=== PATIENT | female | born 1980 | race Hispanic/Latino ===

== ENCOUNTER 2020-08-24 13:09 | Inpatient (IN) | payer OTHER, SELFPAY ==
[2020-08-24 13:45] LABS: #Basophils 0.1 thou/uL (0.0-0.2); #Eosinphils 0.2 thou/uL (0.0-0.7); #Lymphocytes 3.5 thou/uL (1.20-3.40); #Monocytes 0.9 thou/uL (0.11-0.59); #Neutrophils 8.8 thou/uL (1.40-6.50); %Basophils 1.1 % (0.0-1.0); %Eosinophils 1.8 % (0.0-10.0); %Lymphocytes 25.7 % (21.0-51.0); %Monocytes 6.9 % (0.0-10.0); %Neutrophils 64.5 % (42.0-75.0); Hemoglobin 17.3 g/dL (12.0-16.0); Mean Corpuscular HGB CONC 32.7 g/dL (32.0-36.0); Mean Corpuscular Volume 97.8 fL (78.0-98.0); Mean Platelet Volume 9.3 fL (7.4-10.4); Platelet Count 387 thou/uL (130-400); RBC Distribution Width 11.3 % (11.5-14.5); Red Blood Cell (RBC) Count 5.41 mill/uL (4.20-5.40); White Blood Cell (WBC) Count 13.6 thou/uL (4.8-10.8)
[2020-08-24 14:05] LABS: ALT (SGPT) 45 U/L (8-55); AST (SGOT) 26 U/L (5-34); Albumin 4.7 g/dL (3.5-5.0); Alkaline Phosphatase 125 U/L (40-110); Anion Gap 19 mmol/L (10-20); BUN (Urea Nitrogen) 7 mg/dL (7.0-18.7); Bilirubin, Total 0.3 mg/dL (0.2-1.2); Calc. Creatinine Clearance 0 mL/min (70-130); Calcium 9.7 mg/dL (7.8-10.44); Carbon Dioxide 19 mmol/L (22-29); Chloride 101 mmol/L (98-107); Globulin 3.5 g/dL (2.4-3.5); Glucose 418 mg/dL (70-105); Potassium 4.2 mmol/L (3.5-5.1); Protein, Total 8.2 g/dL (6.0-8.3); Sodium 135 mmol/L (136-145)
[2020-08-24] MEDS ORDERED: HYDROcodone/Acetaminophen 5/325 mg Tablet ONE (14:30)
[2020-08-24] MEDS ORDERED: Cefepime 2 GM VIAL ONE (14:42)
[2020-08-24] MEDS ORDERED: Vancomycin 1 GM/200 ML BAG ONE (14:42)
[2020-08-24 16:31] LABS: Bacteria/HPF None Seen HPF (None Seen); Bilirubin Negative (Negative); Blood, Urine Trace (Negative); Clarity Clear (Clear); Glucose, Urine (Dipstick) Greater than 1000 mg/dL (Negative); Ketone, Urine Negative (Negative); Leukocyte Negative Leu/uL (Negative); Nitrite Negative (Negative); Protein, Urine (Dipstick) Negative (Neg-Trace); RBC/HPF 0-3 HPF (0-3); Specific Gravity, Urine 1.035 (1.002-1.036); Urobilinogen Normal mg/dL (Less than 2); WBC/HPF 0-3 HPF (0-3); pH, Urine 5.5 (5.0-9.0)
[2020-08-24 16:48] LABS: Lactic Acid 2.1 mmol/L (0.5-2.2)
[2020-08-24] MEDS ORDERED: Dextrose 5% in Water 1,000 ML IV PRN (17:00)
[2020-08-24] MEDS ORDERED: Dextrose 50% Abboject 50 ML SYRINGE SLOW IVP PRN (17:00)
[2020-08-24] MEDS ORDERED: Acetaminophen 325 MG TAB PO PRN (17:02)
[2020-08-24] MEDS ORDERED: Senokot S 8.6-50 MG TAB PO PRN (17:02)
[2020-08-24] MEDS ORDERED: Bisacodyl 5 MG TAB PO PRN (17:02)
[2020-08-24] MEDS ORDERED: Enoxaparin Sodium 40 MG/0.4 ML SYRINGE SC SCH (17:15)
[2020-08-24 18:06] LABS: Hemoglobin A1c 11.2 % (4.0-6.0)
[2020-08-24 18:11] LABS: Lactic Acid 2.3 mmol/L (0.5-2.2)
[2020-08-24 20:30] VITALS: BMI 34.3
[2020-08-24] MEDS: Famotidine 20 MG TAB PO SCH (21:14)
[2020-08-24] MEDS: HYDROcodone/Acetaminophen 10/325 mg Tablet PO PRN (21:15)
[2020-08-24] MEDS: HumaLOG 300 UNITS/3 ML VIAL SC PRN (21:16)
[2020-08-24] MEDS: Clotrimazole 1 % Cream 30 GM TUBE TOP SCH (21:17)
[2020-08-24] MEDS: Lantus 1000 UNITS/10 ML VIAL SC SCH (21:17)
[2020-08-24] MEDS: Sodium Chloride 0.9% 1,000 ML IV SCH (21:18)
[2020-08-24] MEDS ORDERED: Vancomycin 1 GM in Premix Bag 1 BAG IVPB SCH (21:30)
[2020-08-24] MEDS: Lorazepam 0.5 MG TAB PO PRN (23:50)
[2020-08-25] MEDS: HumaLOG 300 UNITS/3 ML VIAL SC PRN ×4 (04:16→21:22)
[2020-08-25] MEDS: HYDROcodone/Acetaminophen 10/325 mg Tablet PO PRN ×5 (04:16→23:59)
[2020-08-25] MEDS: Sodium Chloride 0.9% 1,000 ML IV SCH ×4 (04:20→21:03)
[2020-08-25] MEDS: Clotrimazole 1 % Cream 30 GM TUBE TOP SCH ×2 (08:11→21:02)
[2020-08-25] MEDS: Famotidine 20 MG TAB PO SCH ×2 (08:11→21:02)
[2020-08-25 08:21] LABS: #Basophils 0.1 thou/uL (0.0-0.2); #Eosinphils 0.4 thou/uL (0.0-0.7); #Lymphocytes 3.4 thou/uL (1.20-3.40); #Monocytes 0.9 thou/uL (0.11-0.59); #Neutrophils 5.6 thou/uL (1.40-6.50); %Basophils 0.9 % (0.0-1.0); %Eosinophils 3.6 % (0.0-10.0); %Monocytes 9.1 % (0.0-10.0); %Neutrophils 53.5 % (42.0-75.0); Hemoglobin 14.7 g/dL (12.0-16.0); Mean Corpuscular HGB CONC 33.5 g/dL (32.0-36.0); Mean Corpuscular Hemoglobin 33.6 pg (27.0-31.0); Mean Platelet Volume 8.8 fL (7.4-10.4); Platelet Count 318 thou/uL (130-400); RBC Distribution Width 11.3 % (11.5-14.5); Red Blood Cell (RBC) Count 4.38 mill/uL (4.20-5.40); White Blood Cell (WBC) Count 10.4 thou/uL (4.8-10.8)
[2020-08-25 08:32] LABS: Anion Gap 13 mmol/L (10-20); BUN (Urea Nitrogen) 5 mg/dL (7.0-18.7); Calc. Creatinine Clearance 159 mL/min (70-130); Carbon Dioxide 19 mmol/L (22-29); Chloride 108 mmol/L (98-107); Glucose 134 mg/dL (70-105); Potassium 4.1 mmol/L (3.5-5.1); Sodium 136 mmol/L (136-145)
[2020-08-25] MEDS: Vancomycin HCl 1.25 GM in Sodium Chloride 0.9% 250 ML 250 ML IVPB SCH ×2 (09:35→21:53)
[2020-08-25] MEDS: Lorazepam 0.5 MG TAB PO PRN ×2 (09:41→21:02)
[2020-08-25] MEDS ORDERED: Lantus 1000 UNITS/10 ML VIAL SC SCH (12:15)
[2020-08-25 12:52] LABS: SARS-CoV-2 PCR by NAA Not Detected (NotDetected)
[2020-08-25] MEDS: Cefepime 2 GM in Sodium Chloride 0.9% 100 ML IVPB SCH (14:44)
[2020-08-25] MEDS: Enoxaparin Sodium 40 MG/0.4 ML SYRINGE SC SCH (21:02)
[2020-08-25] MEDS: Lantus 1000 UNITS/10 ML VIAL SC SCH (21:04)
[2020-08-26] MEDS: Ondansetron ODT 4 MG TAB PO PRN ×2 (01:25→18:18)
[2020-08-26] MEDS: HYDROcodone/Acetaminophen 5/325 mg Tablet PO PRN ×2 (05:54→22:10)
[2020-08-26] MEDS: HumaLOG 300 UNITS/3 ML VIAL SC PRN ×4 (05:56→21:10)
[2020-08-26 08:37] LABS: Vancomycin, Trough 7.5 ug/mL
[2020-08-26] MEDS: Famotidine 20 MG TAB PO SCH ×2 (08:45→21:09)
[2020-08-26] MEDS: Lorazepam 0.5 MG TAB PO PRN ×2 (08:49→22:11)
[2020-08-26] MEDS: Sodium Chloride 0.9% 1,000 ML IV SCH ×3 (08:49→22:13)
[2020-08-26] MEDS: Clotrimazole 1 % Cream 30 GM TUBE TOP SCH ×2 (08:50→22:10)
[2020-08-26 08:51] LABS: #Basophils 0.1 thou/uL (0.0-0.2); #Eosinphils 0.4 thou/uL (0.0-0.7); #Lymphocytes 2.7 thou/uL (1.20-3.40); #Monocytes 0.9 thou/uL (0.11-0.59); #Neutrophils 5.4 thou/uL (1.40-6.50); %Basophils 0.7 % (0.0-1.0); %Eosinophils 3.9 % (0.0-10.0); %Lymphocytes 28.9 % (21.0-51.0); %Monocytes 9.5 % (0.0-10.0); %Neutrophils 57.1 % (42.0-75.0); Mean Corpuscular HGB CONC 34.5 g/dL (32.0-36.0); Mean Corpuscular Hemoglobin 34.3 pg (27.0-31.0); Mean Corpuscular Volume 99.6 fL (78.0-98.0); Mean Platelet Volume 8.8 fL (7.4-10.4); Platelet Count 305 thou/uL (130-400); RBC Distribution Width 11.2 % (11.5-14.5); Red Blood Cell (RBC) Count 4.09 mill/uL (4.20-5.40); White Blood Cell (WBC) Count 9.5 thou/uL (4.8-10.8)
[2020-08-26 09:09] LABS: Anion Gap 12 mmol/L (10-20); BUN (Urea Nitrogen) 4 mg/dL (7.0-18.7); Calc. Creatinine Clearance 142 mL/min (70-130); Calcium 8.4 mg/dL (7.8-10.44); Carbon Dioxide 22 mmol/L (22-29); Chloride 105 mmol/L (98-107); Glucose 217 mg/dL (70-105); Potassium 3.8 mmol/L (3.5-5.1); Sodium 135 mmol/L (136-145)
[2020-08-26] MEDS: Vancomycin HCl 1.25 GM in Sodium Chloride 0.9% 250 ML 250 ML IVPB SCH ×3 (10:07→18:13)
[2020-08-26] MEDS: HYDROcodone/Acetaminophen 10/325 mg Tablet PO PRN ×2 (10:08→16:21)
[2020-08-26] MEDS: Cefepime 2 GM in Sodium Chloride 0.9% 100 ML IVPB SCH (16:21)
[2020-08-26] MEDS ORDERED: Lantus 1000 UNITS/10 ML VIAL SC SCH ×2 (21:00)
[2020-08-26] MEDS: Enoxaparin Sodium 40 MG/0.4 ML SYRINGE SC SCH (21:09)
[2020-08-27] MEDS: Vancomycin HCl 1.25 GM in Sodium Chloride 0.9% 250 ML 250 ML IVPB SCH (02:37)
[2020-08-27 06:27] LABS: Anion Gap 13 mmol/L (10-20); BUN (Urea Nitrogen) 6 mg/dL (7.0-18.7); Calc. Creatinine Clearance 146 mL/min (70-130); Calcium 8.5 mg/dL (7.8-10.44); Carbon Dioxide 20 mmol/L (22-29); Chloride 107 mmol/L (98-107); Glucose 216 mg/dL (70-105); Potassium 3.9 mmol/L (3.5-5.1); Sodium 136 mmol/L (136-145)
[2020-08-27] MEDS: HumaLOG 300 UNITS/3 ML VIAL SC PRN (06:33)
[2020-08-27 06:41] LABS: #Basophils 0.1 thou/uL (0.0-0.2); #Eosinphils 0.4 thou/uL (0.0-0.7); #Lymphocytes 2.7 thou/uL (1.20-3.40); #Monocytes 0.8 thou/uL (0.11-0.59); #Neutrophils 4.4 thou/uL (1.40-6.50); %Basophils 0.7 % (0.0-1.0); %Eosinophils 4.8 % (0.0-10.0); %Monocytes 9.8 % (0.0-10.0); %Neutrophils 52.7 % (42.0-75.0); Hemoglobin 14.7 g/dL (12.0-16.0); Mean Corpuscular HGB CONC 33.7 g/dL (32.0-36.0); Mean Corpuscular Hemoglobin 33.6 pg (27.0-31.0); Mean Corpuscular Volume 99.8 fL (78.0-98.0); Mean Platelet Volume 10.1 fL (7.4-10.4); Platelet Count 256 thou/uL (130-400); RBC Distribution Width 11.2 % (11.5-14.5); Red Blood Cell (RBC) Count 4.39 mill/uL (4.20-5.40); White Blood Cell (WBC) Count 8.4 thou/uL (4.8-10.8)
[2020-08-27] MEDS: Famotidine 20 MG TAB PO SCH (08:52)
[2020-08-27] MEDS: Clotrimazole 1 % Cream 30 GM TUBE TOP SCH (08:52)
[2020-08-27] MEDS: HYDROcodone/Acetaminophen 10/325 mg Tablet PO PRN (08:55)
[2020-08-27] MEDS: Ondansetron ODT 4 MG TAB PO PRN (08:59)
[2020-08-27 10:40] LABS: Vancomycin, Trough 14.8 ug/mL
[2020-08-27 12:45] VITALS: BP 138/92; TEMP 98.7
== END 2020-08-27 13:45 | disposition home or self-care (01) | DRG 872 ==
LOC: SUATTDRO 13:09 → ERS 13:09 → T4-A 17:02
PROVIDERS: ADMIT Family Medicine; ATTEND Internal Medicine
DX: A41.9 Sepsis, unspecified organism (principal); E87.1 Hypo-osmolality and hyponatremia; Z20.822 Contact with and (suspected) exposure to COVID-19; L03.115 Cellulitis of right lower limb; D75.1 Secondary polycythemia; F41.9 Anxiety disorder, unspecified; B35.3 Tinea pedis; F17.210 Nicotine dependence, cigarettes, uncomplicated; R65.20 Severe sepsis without septic shock; E11.9 Type 2 diabetes mellitus without complications; Z71.6 Tobacco abuse counseling; Z88.5 Allergy status to narcotic agent; Z98.51 Tubal ligation status; Z90.49 Acquired absence of other specified parts of digestive tract; Z83.3 Family history of diabetes mellitus
CPT/HCPCS: 36415; 36416; 80048; 80053; 80202; 81003; 81015; 83036; 83605; 85025; 87040; 87086; 93005; 96365; J0692; J1650; J1815; J3370; J3490; J7050; Q0162; U0003; U0005

== ENCOUNTER 2020-12-28 14:38 | Emergency (ER) | payer OTHER ==
[~2020-12-28 14:38] MED LIST: Iopamidol-370 76% 500 ML 1 ML ONE
[2020-12-28 15:52] LABS: #Basophils 0.1 thou/uL (0.0-0.2); #Eosinphils 0.2 thou/uL (0.0-0.7); #Lymphocytes 2.7 thou/uL (1.20-3.40); #Monocytes 1.2 thou/uL (0.11-0.59); #Neutrophils 6.2 thou/uL (1.40-6.50); %Basophils 0.5 % (0.0-1.0); %Eosinophils 2.4 % (0.0-10.0); %Lymphocytes 25.6 % (21.0-51.0); %Monocytes 11.2 % (0.0-10.0); %Neutrophils 60.2 % (42.0-75.0); Hemoglobin 15.3 g/dL (12.0-16.0); Mean Corpuscular HGB CONC 33.4 g/dL (32.0-36.0); Mean Corpuscular Hemoglobin 32.2 pg (27.0-31.0); Mean Corpuscular Volume 96.5 fL (78.0-98.0); Platelet Count 434 thou/uL (130-400); RBC Distribution Width 11.3 % (11.5-14.5); Red Blood Cell (RBC) Count 4.76 mill/uL (4.20-5.40); White Blood Cell (WBC) Count 10.3 thou/uL (4.8-10.8)
[2020-12-28 16:22] LABS: ALT (SGPT) 30 U/L (8-55); AST (SGOT) 22 U/L (5-34); Albumin 4.3 g/dL (3.5-5.0); Alkaline Phosphatase 74 U/L (40-110); Anion Gap 13 mmol/L (10-20); BUN (Urea Nitrogen) 8 mg/dL (7.0-18.7); Bilirubin, Total 0.2 mg/dL (0.2-1.2); Calc. Creatinine Clearance 0 mL/min (70-130); Carbon Dioxide 23 mmol/L (22-29); Chloride 105 mmol/L (98-107); Glucose 213 mg/dL (70-105); Potassium 4.2 mmol/L (3.5-5.1); Protein, Total 7.3 g/dL (6.0-8.3); Sodium 137 mmol/L (136-145)
[2020-12-28] MEDS ORDERED: Piperacillin/Tazobactam 3.375 GM VIAL ONE (17:32)
[2020-12-28] MEDS ORDERED: Ketorolac Tromethamine 30 MG/ML VIAL ONE (17:32)
[2020-12-28] MEDS ORDERED: Morphine 4 MG/ML VIAL ONE (17:32)
[2020-12-28] MEDS ORDERED: Ondansetron PF 4 MG/2 ML Vial ONE (17:44)
== END 2020-12-28 19:34 | disposition home or self-care (01) ==
LOC: ERS 14:38
DX: L03.211 Cellulitis of face (principal); K02.9 Dental caries, unspecified; E11.9 Type 2 diabetes mellitus without complications; F17.210 Nicotine dependence, cigarettes, uncomplicated; Z79.4 Long term (current) use of insulin; Z79.899 Other long term (current) drug therapy
CPT/HCPCS: 36415; 70491; 80053; 83605; 85025; 87040; 93005; 96365; 96375; J1885; J2270; J2405; J2543; Q9967

== ENCOUNTER 2022-05-28 19:17 | Emergency (ER) | payer OTHER ==
[~2022-05-28 19:17] MED LIST changes: -Iopamidol-370 76% 500 ML 1 ML ONE; +Iopamidol-370 76% 500 ML MDV (1 ML CHARGE) ONE
[2022-05-28 19:42] LABS: #Eosinphils 0.3 thou/uL (0.0-0.7); #Lymphocytes 1.6 thou/uL (1.20-3.40); #Monocytes 0.6 thou/uL (0.11-0.59); #Neutrophils 9.1 thou/uL (1.40-6.50); %Basophils 0.4 % (0.0-1.0); %Eosinophils 2.5 % (0.0-10.0); %Lymphocytes 13.9 % (21.0-51.0); %Monocytes 4.8 % (0.0-10.0); %Neutrophils 78.4 % (42.0-75.0); Mean Corpuscular HGB CONC 33.7 g/dL (32.0-36.0); Mean Corpuscular Hemoglobin 33.3 pg (27.0-31.0); Mean Corpuscular Volume 98.9 fl (78.0-98.0); Mean Platelet Volume 8.1 fL (7.4-10.4); Platelet Count 395 10x3/uL (130-400); RBC Distribution Width 11.7 % (11.5-14.5); White Blood Cell (WBC) Count 11.6 10x3/uL (4.8-10.8)
[2022-05-28 20:05] LABS: ALT (SGPT) 21 U/L (8-55); AST (SGOT) 20 U/L (5-34); Albumin 4.1 g/dL (3.5-5.0); Alkaline Phosphatase 63 U/L (40-110); Anion Gap 13 mmol/L (10-20); BUN (Urea Nitrogen) 10 mg/dL (7.0-18.7); Bilirubin, Total 0.4 mg/dL (0.2-1.2); Calc. Creatinine Clearance 0 mL/min (70-130); Carbon Dioxide 22 mmol/L (22-29); Chloride 105 mmol/L (98-107); Estimated GFR 92; Glucose 122 mg/dL (70-105); Lipase 97 U/L (8-78); Potassium 3.9 mmol/L (3.5-5.1); Protein, Total 7.1 g/dL (6.0-8.3); Sodium 136 mmol/L (136-145)
[2022-05-28 21:08] LABS: BHCG - Serum Negative (NEGATIVE); Pregs Control Background? CLEAR/WHITE (CLR/WHITE); Pregs Control Bar Appear? YES (CONTROL BAR)
[2022-05-28] MEDS ORDERED: Morphine 4 MG/ML VIAL ONE ×2 (22:04→22:52)
[2022-05-28] MEDS ORDERED: Ondansetron PF 4 MG/2 ML Vial ONE (22:04)
[2022-05-28] MEDS ORDERED: FENTANYL 50 MCG/ML 1 ML VIAL ONE (23:10)
[2022-05-29 03:57] LABS: Bilirubin Negative (Negative); Blood, Urine Negative (Negative); Clarity Clear (Clear); Glucose, Urine (Dipstick) Normal (Negative); Ketone, Urine Negative (Negative); Leukocyte Negative Leu/uL (Negative); Nitrite Negative (Negative); Protein, Urine (Dipstick) Negative (Neg-Trace); Specific Gravity, Urine 1.008 (1.002-1.036); Urobilinogen Normal mg/dL (Less than 2); pH, Urine 6.5 (5.0-9.0)
== END 2022-05-29 02:48 | disposition home or self-care (01) ==
LOC: ERS 19:17
DX: R10.814 Left lower quadrant abdominal tenderness (principal); D72.829 Elevated white blood cell count, unspecified; E11.9 Type 2 diabetes mellitus without complications; F17.210 Nicotine dependence, cigarettes, uncomplicated; Z79.84 Long term (current) use of oral hypoglycemic drugs; Z79.899 Other long term (current) drug therapy; Z79.4 Long term (current) use of insulin
CPT/HCPCS: 36415; 74177; 80053; 81003; 83605; 83690; 84703; 85025; 87086; 96361; 96374; 96375; J2270; J2405; J3010; Q9967

== ENCOUNTER 2022-06-26 14:17 | Emergency (ER) | payer OTHER ==
[2022-06-26 15:56] LABS: #Basophils 0.1 thou/uL (0.0-0.2); #Eosinphils 2.3 thou/uL (0.0-0.7); #Lymphocytes 3.3 thou/uL (1.20-3.40); #Monocytes 0.7 thou/uL (0.11-0.59); #Neutrophils 9.5 thou/uL (1.40-6.50); %Basophils 0.7 % (0.0-1.0); %Eosinophils 14.4 % (0.0-10.0); %Lymphocytes 20.7 % (21.0-51.0); %Monocytes 4.5 % (0.0-10.0); %Neutrophils 59.7 % (42.0-75.0); Hemoglobin 15.6 g/dL (12.0-16.0); Mean Corpuscular HGB CONC 34.6 g/dL (32.0-36.0); Mean Corpuscular Hemoglobin 33.9 pg (27.0-31.0); Mean Platelet Volume 8.9 fL (7.4-10.4); Platelet Count 386 10x3/uL (130-400); RBC Distribution Width 11.9 % (11.5-14.5); Red Blood Cell (RBC) Count 4.61 mill/uL (4.20-5.40); White Blood Cell (WBC) Count 15.9 10x3/uL (4.8-10.8)
[2022-06-26 16:27] LABS: ALT (SGPT) 24 U/L (8-55); AST (SGOT) 22 U/L (5-34); Alkaline Phosphatase 74 U/L (40-110); Anion Gap 12 mmol/L (10-20); BUN (Urea Nitrogen) 8 mg/dL (7.0-18.7); Bilirubin, Total 0.2 mg/dL (0.2-1.2); Calc. Creatinine Clearance 0 mL/min (70-130); Carbon Dioxide 25 mmol/L (22-29); Chloride 105 mmol/L (98-107); Estimated GFR 92; Globulin 3.1 g/dL (2.4-3.5); Glucose 111 mg/dL (70-105); Potassium 4.4 mmol/L (3.5-5.1); Protein, Total 7.1 g/dL (6.0-8.3); Sodium 138 mmol/L (136-145)
[2022-06-26] MEDS ORDERED: Morphine 4 MG/ML VIAL ONE ×2 (17:36→22:37)
[2022-06-26] MEDS ORDERED: Ondansetron PF 4 MG/2 ML Vial ONE (17:40)
[2022-06-26] MEDS ORDERED: Ketorolac Tromethamine 30 MG/ML VIAL ONE (19:43)
[2022-06-26] MEDS ORDERED: Ampicillin/Sulbactam 3 GM in Sodium Chloride 0.9% 100 ML IVPB SCH (19:45)
[2022-06-26] MEDS ORDERED: Famotidine/PF 20 mg/2ml Vial ONE (22:37)
== END 2022-06-26 23:00 | disposition home or self-care (01) ==
LOC: ERS 14:17
DX: K04.7 Periapical abscess without sinus (principal); D72.829 Elevated white blood cell count, unspecified; F17.210 Nicotine dependence, cigarettes, uncomplicated; Z79.84 Long term (current) use of oral hypoglycemic drugs; Z79.899 Other long term (current) drug therapy; Z79.4 Long term (current) use of insulin
CPT/HCPCS: 36415; 70487; 74176; 80053; 83605; 83690; 85025; 87040; 93005; 96365; 96375; 96376; J0295; J1885; J2270; J2405; J3490; S0028

== ENCOUNTER 2022-09-06 00:18 | Observation (INO) | payer OTHER ==
[2022-09-06 01:22] LABS: #Basophils 0.1 thou/uL (0.0-0.2); #Eosinphils 0.2 thou/uL (0.0-0.7); #Monocytes 0.7 thou/uL (0.11-0.59); #Neutrophils 10.1 thou/uL (1.40-6.50); %Basophils 0.5 % (0.0-1.0); %Eosinophils 1.4 % (0.0-10.0); %Lymphocytes 27.9 % (21.0-51.0); %Monocytes 4.6 % (0.0-10.0); Hemoglobin 15.5 g/dL (12.0-16.0); Mean Corpuscular HGB CONC 33.8 g/dL (32.0-36.0); Mean Corpuscular Hemoglobin 32.2 pg (27.0-31.0); Platelet Count 434 10x3/uL (130-400); RBC Distribution Width 12.2 % (11.5-14.5); Red Blood Cell (RBC) Count 4.82 mill/uL (4.20-5.40); White Blood Cell (WBC) Count 15.5 10x3/uL (4.8-10.8)
[2022-09-06 02:07] LABS: Anisocytosis SLIGHT = 6-15 cells HPF (0-5); CellaVision Operator ID LAB.CMB; Macrocytosis SLIGHT = 6-15 cells HPF (0-5); Platelet Adequacy Comment Platelets Increased; RBC Morphology Within Normal Limits
[2022-09-06] MEDS ORDERED: Dextrose 50% Abboject 50 ML SYRINGE ONE ×3 (02:32→05:57)
[2022-09-06] MEDS ORDERED: Cyclopentolate 1% Opth Drop 2 ML BOT ONE (02:32)
[2022-09-06 02:57] LABS: ALT (SGPT) 19 U/L (8-55); AST (SGOT) 16 U/L (5-34); Albumin 4.2 g/dL (3.5-5.0); Alkaline Phosphatase 65 U/L (40-110); Anion Gap 13 mmol/L (10-20); BUN (Urea Nitrogen) 5 mg/dL (7.0-18.7); Bilirubin, Total 0.2 mg/dL (0.2-1.2); Calc. Creatinine Clearance 0 mL/min (70-130); Calcium 9.3 mg/dL (7.8-10.44); Carbon Dioxide 20 mmol/L (22-29); Chloride 106 mmol/L (98-107); Estimated GFR 99; Globulin 3.2 g/dL (2.4-3.5); Glucose 76 mg/dL (70-105); Potassium 2.9 mmol/L (3.5-5.1); Protein, Total 7.4 g/dL (6.0-8.3); Sodium 136 mmol/L (136-145)
[2022-09-06] MEDS ORDERED: Potassium Chloride 20 MEQ TAB ONE (03:45)
[2022-09-06] MEDS: Dextrose 5% in Water 1,000 ML IV SCH ×2 (04:44→16:54)
[2022-09-06 05:26] LABS: Hemoglobin A1c 6.3 % (4.0-6.0)
[2022-09-06] MEDS ORDERED: Acetaminophen 325 MG TAB PO PRN (05:31)
[2022-09-06] MEDS: Ondansetron PF 4 MG/2 ML Vial IVP PRN ×2 (05:49→10:24)
[2022-09-06] MEDS: Ketorolac Tromethamine 30 MG/ML VIAL IVP PRN ×2 (05:53→16:41)
[2022-09-06 06:26] VITALS: BMI 38.2
[2022-09-06] MEDS ORDERED: Gabapentin 300 MG CAP PO PRN (08:56)
[2022-09-06] MEDS ORDERED: Ondansetron ODT 4 MG TAB PO PRN (08:56)
[2022-09-06] MEDS ORDERED: Non-Formulary Item 1 EACH (Lactobacillus Acidophilus [Probiotic] 1 CAPSULE Capsule) PO SCH (09:00)
[2022-09-06] MEDS: Famotidine/PF 20 mg/2ml Vial SLOW IVP SCH ×2 (10:24→19:59)
[2022-09-06] MEDS: Lisinopril 10 MG TAB PO SCH (10:25)
[2022-09-06] MEDS: Atorvastatin Calcium 20 MG TAB PO SCH (10:25)
[2022-09-06] MEDS: Floranex 1 GM Packet PO SCH (10:25)
[2022-09-06 12:13] LABS: Anion Gap 15 mmol/L (10-20); BUN (Urea Nitrogen) 5 mg/dL (7.0-18.7); Calc. Creatinine Clearance 157 mL/min (70-130); Calcium 8.6 mg/dL (7.8-10.44); Carbon Dioxide 18 mmol/L (22-29); Chloride 107 mmol/L (98-107); Estimated GFR 104; Glucose 138 mg/dL (70-105); Potassium 4.6 mmol/L (3.5-5.1); Sodium 135 mmol/L (136-145)
[2022-09-06] MEDS: Dicyclomine 10 MG CAP PO SCH (19:59)
[2022-09-06 22:33] VITALS: BP 113/81
[2022-09-07] MEDS: Ketorolac Tromethamine 30 MG/ML VIAL IVP PRN (03:46)
[2022-09-07 04:05] LABS: #Basophils 0.1 thou/uL (0.0-0.2); #Eosinphils 0.3 thou/uL (0.0-0.7); #Monocytes 0.9 thou/uL (0.11-0.59); %Basophils 0.6 % (0.0-1.0); %Eosinophils 2.9 % (0.0-10.0); %Lymphocytes 22.6 % (21.0-51.0); %Monocytes 8.4 % (0.0-10.0); %Neutrophils 64.9 % (42.0-75.0); Hemoglobin 13.9 g/dL (12.0-16.0); Mean Corpuscular HGB CONC 32.9 g/dL (32.0-36.0); Mean Corpuscular Volume 97.5 fl (78.0-98.0); Mean Platelet Volume 10.1 fL (7.4-10.4); Platelet Count 374 10x3/uL (130-400); RBC Distribution Width 12.1 % (11.5-14.5); Red Blood Cell (RBC) Count 4.34 mill/uL (4.20-5.40); White Blood Cell (WBC) Count 10.7 10x3/uL (4.8-10.8)
[2022-09-07 04:27] LABS: Anion Gap 14 mmol/L (10-20); BUN (Urea Nitrogen) 6 mg/dL (7.0-18.7); Calc. Creatinine Clearance 149 mL/min (70-130); Calcium 8.7 mg/dL (7.8-10.44); Carbon Dioxide 21 mmol/L (22-29); Chloride 107 mmol/L (98-107); Estimated GFR 97; Glucose 187 mg/dL (70-105); Potassium 4.2 mmol/L (3.5-5.1); Sodium 138 mmol/L (136-145)
[2022-09-07] MEDS: Dextrose 5% in Water 1,000 ML IV SCH (05:01)
[2022-09-07 08:18] VITALS: TEMP 98.3
[2022-09-07] MEDS ORDERED: metFORMIN 500 MG TAB PO SCH ×2 (08:45→17:00)
[2022-09-07] MEDS ORDERED: Insulin Glargine 30 UNITS/0.3 ML VIAL SC SCH (09:00)
[2022-09-07] MEDS ORDERED: glipiZIDE 5 MG TAB PO SCH ×2 (09:00)
[2022-09-07] MEDS ORDERED: Famotidine 20 MG TAB PO SCH ×2 (09:00→21:00)
[2022-09-07] MEDS: Floranex 1 GM Packet PO SCH (09:22)
[2022-09-07] MEDS: Atorvastatin Calcium 20 MG TAB PO SCH (09:23)
[2022-09-07] MEDS: Lisinopril 10 MG TAB PO SCH (09:24)
[2022-09-07] MEDS: Famotidine/PF 20 mg/2ml Vial SLOW IVP SCH (09:31)
[2022-09-07] MEDS: Dicyclomine 10 MG CAP PO SCH (09:55)
[2022-09-07] MEDS ORDERED: HumuLIN 70/30 100 Unit/ ml Vial SC SCH (12:00)
== END 2022-09-07 10:40 | disposition home or self-care (01) ==
LOC: ERS 00:18 → IMCU/EMU 03:30
PROVIDERS: ADMIT Hospitalist; ATTEND Emergency Medicine
DX: T38.3X1A Poisoning by insulin and oral hypoglycemic [antidiabetic] drugs, accidental (unintentional), initial encounter (principal); E10.649 Type 1 diabetes mellitus with hypoglycemia without coma; E87.6 Hypokalemia; E87.20 Acidosis, unspecified; D72.829 Elevated white blood cell count, unspecified; F17.210 Nicotine dependence, cigarettes, uncomplicated; Z88.6 Allergy status to analgesic agent; Z79.84 Long term (current) use of oral hypoglycemic drugs; Z79.891 Long term (current) use of opiate analgesic; Z79.4 Long term (current) use of insulin
CPT/HCPCS: 36415; 36416; 80048; 80053; 83036; 85025; 93005; 96372; 96375; 96376; G0378; J1650; J1815; J1885; J2405; J7070; J7999; Q0162; S0028